=== PATIENT | male | born 1945 | race Caucasian/White ===

== ENCOUNTER → 2019-12-15 10:53 | Outpatient (CLI) | payer MEDICARE, SELFPAY ==
--- NOTE | 2019-12-15 11:00 | RAD_ITS ---
STUDY: X-RAY - LEFT ELBOW REASON FOR EXAM: Male, 73 years old. left medial elbow pain, look for OA TECHNIQUE: 3 view(s) of the elbow. COMPARISON: None. FINDINGS: Normal visualized humerus, radius and ulna. Normal radiocapitellar and ulnotrochlear articulations. The soft tissue structures are unremarkable. RAD/Elbow min 3 Views IMPRESSION: Normal x-ray examination of the elbow. Electronically Signed: Idris Gudino MD at 13:28 EDT Tel , Service support ,
== END ==
PROVIDERS: PCP Family Medicine; Referring Provider Family Medicine; Visit Provider Family Medicine
DX: M25.522 Pain in left elbow (principal)
CPT/HCPCS: 73080

== ENCOUNTER → 2022-08-06 | Outpatient (CLI) | payer MEDICARE, SELFPAY ==
--- NOTE | 2022-08-06 15:43 | RAD_ITS ---
INDICATION: Trauma 5 weeks ago. EXAMINATION/TECHNIQUE: X-RAY - RIGHT XR Wrist Min 3 Views 4 VIEWS COMPARISON: Right hand, August 06, 2022. FINDINGS: SOFT TISSUES: No soft tissue swelling or gas. No radiopaque foreign body. BONES/JOINTS: There is mild narrowing of the radiocarpal joint. The carpals and intercarpal joints are grossly normal. Normal carpal metacarpal joints. Visualized carpals are unremarkable. RAD/Wrist min 3 Views IMPRESSION: No evidence of acute fracture or dislocation. Electronically Signed: Alton French DO at 18:29 EDT ,
--- NOTE | 2022-08-06 15:45 | RAD_ITS ---
INDICATION: Trauma 5 weeks ago. Pain. EXAMINATION/TECHNIQUE: X-RAY - RIGHT XR Hand Min 3 Views 3 VIEWS COMPARISON: Right wrist, August 06, 2022. FINDINGS: SOFT TISSUES: No soft tissue swelling or gas. No radiopaque foreign body. BONES/JOINTS: No acute fracture or subluxation.. Normal alignment. There are mild degenerative changes of the wrist. There are taken the relationships of the hand appear grossly normal.. No sclerotic or destructive changes observed. RAD/Hand Min 3 Views IMPRESSION: No acute fracture or dislocation. Electronically Signed: Alton French DO at 18:29 EDT ,
== END | disposition home or self-care (01) ==
LOC: MTRAD 15:40
PROVIDERS: PCP Family Medicine; Referring Provider Family Medicine; Visit Provider Family Medicine
DX: M79.641 Pain in right hand (principal); M25.531 Pain in right wrist
CPT/HCPCS: 73110; 73130